=== PATIENT | male | born 1965 | race Caucasian/White ===

== ENCOUNTER → 2016-08-06 | Outpatient (CLI) | payer MEDICARE ==
[~2016-08-06] MED LIST: ASPIRIN EC81 MG PO; CARDIZEM CD)(T180 MG PO; CLARITIN10 MG PO; COZAAR25 MG PO; LASIX40 MG PO; MOBIC7.5 MG PO; NEURONTIN600 MG PO; NITROSTAT0.4 MG SL; NORCO 5-325 TA1 EACH PO; PRILOSEC20 MG PO; TOPIRAMATE50 MG PO; ZOCOR80 MG PO; ZOLOFT25 MG PO
[2016-08-06 10:17] LABS: ANION GAP 15.5 (10.0-19.0); BLOOD UREA NITROGEN 20 mg/dL (6-24); CALCIUM 8.9 mg/dL (8.5-10.5); CHLORIDE 108 mMol/L (96-110); CO2 20 mMol/L (22-32); CREATININE 0.9 mg/dL (0.6-1.3); ESTIMATED GFR (MDRD EQUATION) > 60; POTASSIUM 3.5 mMol/L (3.7-5.1); SODIUM 140 mMol/L (135-145)
== END ==
LOC: LNHI 09:55
PROVIDERS: Nurse Practitioner
DX: I42.8 Other cardiomyopathies (principal); I50.32 Chronic diastolic (congestive) heart failure; R60.9 Edema, unspecified

== ENCOUNTER → 2016-09-30 | Outpatient (CLI) | payer MEDICARE | END | disposition disaster alternative care site (69) | LOC: GRAD 08:56 | DX: R74.8 Abnormal levels of other serum enzymes (principal) ==

== ENCOUNTER → 2016-10-15 | Outpatient (CLI) | payer MEDICARE ==
[2016-10-15 17:03] LABS: ANION GAP 13.8 (10.0-19.0); BLOOD UREA NITROGEN 19 mg/dL (6-24); CALCIUM 8.2 mg/dL (8.5-10.5); CHLORIDE 114 mMol/L (96-110); CO2 20 mMol/L (22-32); CREATININE 0.9 mg/dL (0.6-1.3); ESTIMATED GFR (MDRD EQUATION) > 60; POTASSIUM 3.8 mMol/L (3.7-5.1); SODIUM 144 mMol/L (135-145)
== END | disposition disaster alternative care site (69) ==
LOC: LNHI 16:38
PROVIDERS: Internal Medicine Cardiovascular Disease
DX: I50.22 Chronic systolic (congestive) heart failure (principal)

== ENCOUNTER → 2016-11-13 | Day surgery (SDC) | payer MEDICARE ==
[~2016-11-13] VITALS: Ht 172.7 cm; Wt 98.6 kg
--- NOTE | ~2016-11-13 | OR ---
PATIENT'S NAME: ANDREINA MCALLISTER [facility] AGE: 51 Y [address] ROOM: [place] [address] LOCATION: [facility] ADMIT DATE: 11/13/2016 OR/Procedure Report DISCHARGE DATE: FAMILY PHYSICIAN: JIMMY MOJICA MD ATTENDING PHYSICIAN: Aj Mccarty SURGEON: Aj Mccarty DO HAT RENOVATOR: DATE OF PROCEDURE: 11/13/2016 PREOPERATIVE DIAGNOSIS: ICD generator at normal battery depletion. POSTOPERATIVE DIAGNOSIS: ICD generator at normal battery depletion. PROCEDURE: Removal and exchange of ICD generator, dual-chamber. REFERRING PHYSICIAN: Anil Pineda MD. BRIEF HISTORY: Mr. Mcallister is a 51-year-old white male with the above-noted diagnosis. He has been brought to the operative suite today for exchange of his generator. His previous incision was marked. This olga was then sterilely prepped and draped. After appropriate IV sedation was achieved, 1% lidocaine was used to infiltrate the incision and the incision was then opened. Electrocautery was used for dissection and hemostasis. The lead and generator were removed from the pocket. The old generator, which is a [employer] model X18-9ILI was removed. Its serial number is [id number] and this was replaced with a [employer] Knomegen EL ICD generator, model D143, serial #[id number]. Lead and generator were placed into the pocket. Appropriate sensing and pacing was noted. The pocket was closed in a layered fashion with 2-0 Vicryl and 4-0 Monocryl and a dressing was applied. The patient tolerated the procedure well, and was transferred to the outpatient recovery room in stable condition. AJ MCCARTY DO MCB/modl /[id number] d: 11/16/16 1133 t: 11/16/16 1404, OPERATIVE SUMMARY
[2016-11-13 06:49] LABS: INR - (THERAPEUTIC) 0.94 (0.92-1.07); PROTIME 9.9 SECONDS (9.8-11.4)
[2016-11-13 06:54] LABS: ALBUMIN 3.7 gm/dL (3.5-5.0); ANION GAP 12.3 (10.0-19.0); CALCIUM 8.6 mg/dL (8.5-10.5); PHOSPHORUS 2.6 mg/dL (2.5-4.9); POTASSIUM 4.3 mMol/L (3.7-5.1)
== END | disposition disaster alternative care site (69) ==
LOC: GPOC 11-12 17:00 → GSDC 05:57
PROVIDERS: Thoracic Surgery (Cardiothoracic Vascular Surgery)
PROC: 0JPT0PZ Removal of Cardiac Rhythm Related Device from Trunk Subcutaneous Tissue and Fascia, Open Approach (ICD-10-PCS; principal; 2016-11-13)
PROC: 0JH608Z Insertion of Defibrillator Generator into Chest Subcutaneous Tissue and Fascia, Open Approach (ICD-10-PCS; 2016-11-13)
DX: Z45.02 Encounter for adjustment and management of automatic implantable cardiac defibrillator (principal); I10 Essential (primary) hypertension; K21.9 Gastro-esophageal reflux disease without esophagitis; F32.9 Major depressive disorder, single episode, unspecified; F41.9 Anxiety disorder, unspecified; E78.00 Pure hypercholesterolemia, unspecified; J44.9 Chronic obstructive pulmonary disease, unspecified; Z87.891 Personal history of nicotine dependence; Z98.890 Other specified postprocedural states
CPT/HCPCS: C1721; J0690; J2001; J7120